=== PATIENT | female | born 2005 | race Caucasian/White ===

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

== ENCOUNTER 2023-07-23 18:14 | Inpatient (IN) | payer MEDICAID ==
[~2023-07-23] VITALS: Ht 162.6 cm; Wt 98.4 kg
[~2023-07-23 18:14] MED LIST: PRO40 PO; SULF1TAB48 PO
[2023-07-23 18:44] VITALS: BP_SYST 118; PULSE 165; RESP 24; TEMP 99.1; O2SAT 100
[2023-07-23] MEDS ORDERED: NACL 0.9% 1,000 ML IV ONE (19:15)
[2023-07-23 19:20] LABS: BILIRUBIN,URINE NEGATIVE (NEGATIVE); BLOOD, URINE 3+ (NEGATIVE); CLARITY/URINE SL CLOUDY (CLEAR); COLOR,URINE YELLOW (YELLOW); GLUCOSE,URINE NEGATIVE (NEGATIVE); KETONES,URINE TRACE (NEGATIVE); LEUKOCYTE ESTERASE ,URINE 3+ (NEGATIVE); NITRITE, URINE NEGATIVE (NEGATIVE); PROTEIN URINE 1+ (NEGATIVE); UROBILINOGEN,URINE 0.2 (0.2-1.0)
[2023-07-23 19:31] LABS: BACTERIA,URINE FEW /HPF (None Seen); MUCUS,URINE None Seen /LPF (None Seen); RBC,URINE 0-3 /HPF (0-3); WBC,URINE 80-100 /HPF (0-3)
[2023-07-23 19:39] LABS: COVID19 ANTIGEN SOFIA FIA NEGATIVE (NEGATIVE)
[2023-07-23 19:41] LABS: INFLUENZA TYPE A Negative (NEGATIVE); INFLUENZA TYPE B NEGATIVE (NEGATIVE)
[2023-07-23 19:46] LABS: HEMATOCRIT 27.4 % (36-48); HEMOGLOBIN 8.7 g/dL (12.0-16.0); MEAN CORPUSCULAR HEMOGLOBIN 26 pg (27-31); MEAN CORPUSCULAR HGB CONC 32 % (32-36); MEAN CORPUSCULAR VOLUME 80 fL (79.0-98.0); PLATELET COUNT (AUTO) 406 K/uL (130-430); RED BLOOD CELL COUNT(AUTO) 3.42 MIL/uL (4.2-6.2); RED CELL DISTRIBUTION WIDTH 16.5 % (9.0-15.0)
[2023-07-23 19:53] LABS: ANION GAP 13 (5-15); CALCIUM 8.8 mg/dL (8.4-11.0); CARBON DIOXIDE 24 mmol/L (23-29); CHLORIDE 99 mmol/L (98-107); CREATININE 0.95 mg/dL (0.55-1.30); GFR AFRICAN AMERICAN 96 mL/min (>90); GLUCOSE 115 mg/dL (74-106); POTASSIUM 3.6 mmol/L (3.5-5.1); SODIUM SERUM 136 mmol/L (136-145); UREA NITROGEN, BLOOD 15 mg/dL (8-21)
[2023-07-23 19:54] LABS: GFR NON AFRICAN-AMERICAN 80 mL/min (>90)
[2023-07-23 19:56] LABS: PROTHROMBIN TIME 10.3 SECS (9.5-12.5); WHITE BLOOD COUNT (AUTO) 22.8 K/uL (4.5-11.0)
[2023-07-23 20:03] LABS: ANISOCYTOSIS 1+; BAND % (MANUAL) 7 % (0-6); BASOPHILS % (MANUAL) 0 % (0-2); EOSINOPHILS % (MANUAL) 2 % (0-7); LYMPHOCYTES % (MANUAL) 4 % (20-46); MONOCYTES % (MANUAL) 4 % (0-11); PLATELET ESTIMATE ADEQUATE (ADEQUATE)
[2023-07-23 20:06] LABS: ALANINE AMINOTRANSFERASE 22 U/L (12-78); ASPARTATE AMINOTRANSFERASE 14 U/L (10-37); THYROID STIMULATING HORMONE 0.55 uIu/mL (0.34-4.82); TOTAL BILIRUBIN 0.6 mg/dL (0.0-1.0); TOTAL PROTEIN, SERUM 6.9 g/dL (6.4-8.3)
[2023-07-23] MEDS ORDERED: ACETAMINOPHEN 500 MG TABLET ONE (21:10)
[2023-07-23] MEDS ORDERED: ACETAMINOPHEN 500 MG TABLET PO ONE (21:30)
[2023-07-24] VITALS (12 sets, daily range): BP systolic 99–133; PULSE 70–135; RESP 18–20; TEMP 97.4–101.1; O2SAT 70–99
[2023-07-24] MEDS ORDERED: PIPERACILLIN/TAZO 4.5 GM in NS 100 ML IV ONE (00:45)
[2023-07-24] MEDS ORDERED: cefTRIAXone 1 GM IVPB PREMIX 50 ML IV ONE (00:45)
[2023-07-24] MEDS ORDERED: iohexoL 350 mgI/mL, 100 ML INFUS..BTL IV ONE (00:51)
[2023-07-24] MEDS ORDERED: DIPHENHYDRAMINE INJ 50 MG/ML VIAL ONE (01:27)
[2023-07-24] MEDS ORDERED: DIPHENHYDRAMINE INJ 50 MG/ML VIAL IVP ONE (01:30)
[2023-07-24] MEDS ORDERED: ACETAMINOPHEN 500 MG TABLET ONE (02:54)
[2023-07-24] MEDS ORDERED: ACETAMINOPHEN 500 MG TABLET PO ONE (03:00)
[2023-07-24] MEDS ORDERED: KETOROLAC TROMETHAMINE 30 MG VIAL IVP ONE (03:30)
[2023-07-24] MEDS ORDERED: KETOROLAC TROMETHAMINE 30 MG VIAL ONE (03:33)
[2023-07-24] MEDS ORDERED: MUPIROCIN 2% TOPICAL OINTMENT 22 GM NS PRN (07:15)
[2023-07-24] MEDS ORDERED: DOCUSATE SODIUM 100 MG CAPSULE PO PRN (07:15)
[2023-07-24] MEDS ORDERED: ONDANSETRON HCL 4 MG/2 ML VIAL IVP PRN (07:15)
[2023-07-24] MEDS ORDERED: MAGNESIUM SULFATE 50 ML IV PRN (07:15)
[2023-07-24] MEDS ORDERED: POTASSIUM CHLORIDE 20 MEQ TAB.PRT.SR PO PRN (07:15)
[2023-07-24] MEDS: NACL 0.9% 1,000 ML IV SCH ×2 (08:50→18:00)
[2023-07-24] MEDS ORDERED: ACETAMINOPHEN 325 MG TABLET PO PRN ×2 (09:15)
[2023-07-24] MEDS: ACETAMINOPHEN 325 MG TABLET PO PRN ×2 (15:56→21:49)
[2023-07-24] MEDS: metroNIDAZOLE 500 mg/NS 100 ML IV SCH (20:30)
[2023-07-24] MEDS ORDERED: cefTRIAXone 1 GM in D5W 50 ML IV SCH (21:00)
[2023-07-25 02:23] VITALS: BP_SYST 125; PULSE 134; RESP 18; TEMP 102.4; O2SAT 98
[2023-07-25 05:14] LABS: BASOPHILS # (AUTO) 0.1 K/uL (0.0-0.2); BASOPHILS % (AUTO) 0.4 % (0.0-2.0); EOSINOPHILS # (AUTO) 0.2 K/uL (0.0-0.4); EOSINOPHILS % (AUTO) 1.5 % (0.0-4.0); HEMATOCRIT 26.3 % (36-48); HEMOGLOBIN 8.2 g/dL (12.0-16.0); LYMPHOCYTES # (AUTO) 2.2 K/uL (1.0-5.5); LYMPHOCYTES % (AUTO) 13.9 % (20.5-51.5); MEAN CORPUSCULAR HEMOGLOBIN 25 pg (27-31); MEAN CORPUSCULAR HGB CONC 31 % (32-36); MEAN CORPUSCULAR VOLUME 81 fL (79.0-98.0); MONOCYTES # (AUTO) 1.1 K/uL (0.0-1.0); MONOCYTES % (AUTO) 7.3 % (1.7-9.3); NEUTROPHILS # (AUTO) 11.9 K/uL (1.8-7.7); NEUTROPHILS % (AUTO) 76.9 % (40.0-70.0); PLATELET COUNT (AUTO) 337 K/uL (130-430); RED BLOOD CELL COUNT(AUTO) 3.25 MIL/uL (4.2-6.2); RED CELL DISTRIBUTION WIDTH 17.5 % (9.0-15.0); WHITE BLOOD COUNT (AUTO) 15.5 K/uL (4.5-11.0)
[2023-07-25 05:49] LABS: CALCIUM 8.7 mg/dL (8.4-11.0); CREATININE 0.74 mg/dL (0.55-1.30); POTASSIUM 3.5 mmol/L (3.5-5.1)
[2023-07-25 07:43] VITALS: BP_SYST 133; PULSE 114; RESP 18; TEMP 98.6; O2SAT 98
[2023-07-25 08:00] VITALS: O2SAT 98
[2023-07-25] MEDS ORDERED: CEPH-548 PO (08:52)
[2023-07-25] MEDS: metroNIDAZOLE 500 mg/NS 100 ML IV SCH (08:52)
[2023-07-25] MEDS: NACL 0.9% 1,000 ML IV SCH (08:56)
[2023-07-25 10:20] VITALS: BP_SYST 137; PULSE 114; RESP 18; TEMP 98.6
== END 2023-07-25 10:50 | disposition home or self-care (01) | DRG 561 ==
LOC: SED 18:14 → STU 07-24 05:44
PROVIDERS: ADMIT General Practice; ATTEND General Practice
DX: O85 Puerperal sepsis (principal); N10 Acute pyelonephritis; D62 Acute posthemorrhagic anemia; O99.893 Other specified diseases and conditions complicating puerperium; D64.9 Anemia, unspecified; Z20.822 Contact with and (suspected) exposure to COVID-19; O99.215 Obesity complicating the puerperium; O90.81 Anemia of the puerperium; R00.0 Tachycardia, unspecified; Z88.2 Allergy status to sulfonamides
CPT/HCPCS: 36415; 71045; 71275; 76376; 80048; 80053; 81000; 81001; 81015; 83037; 83605; 83735; 84439; 84443; 84484; 85007; 85025; 85027; 85379; 85610-TC; 85730-TC; 87040; 87086; 93005; 93970; 96360; 99291; G0378; J0696; J1200; J1885; J3490; J7060; Q9967

== ENCOUNTER 2024-02-19 21:59 | Emergency (ER) | payer MEDICAID ==
[~2024-02-19] VITALS: Ht 162.6 cm; Wt 88.9 kg
[~2024-02-19 21:59] MED LIST changes: +CEPH-548 PO; -PRO40 PO; -SULF1TAB48 PO
[2024-02-19 22:12] VITALS: BP_SYST 136; PULSE 110; RESP 20; TEMP 98.7; O2SAT 100
[2024-02-19] MEDS: KETOROLAC TROMETHAMINE 60 MG/2 ML VIAL IM ONE (22:49)
[2024-02-19] MEDS ORDERED: NAPR-1172 PO (23:14)
[2024-02-19 23:16] VITALS: BP_SYST 136; PULSE 110; RESP 20; TEMP 98.7; O2SAT 100
== END 2024-02-19 23:16 | disposition home or self-care (01) ==
LOC: SED 21:59
DX: S43.402A Unspecified sprain of left shoulder joint, initial encounter (principal); J45.909 Unspecified asthma, uncomplicated; Z79.899 Other long term (current) drug therapy; Z79.2 Long term (current) use of antibiotics; X58.XXXA Exposure to other specified factors, initial encounter; Y93.89 Activity, other specified; Y92.89 Other specified places as the place of occurrence of the external cause; Y99.8 Other external cause status
CPT/HCPCS: 99283; 96372; J1885